=== PATIENT | female | born 1965 ===

== ENCOUNTER 2021-09-08 01:15 | Emergency (ER) | payer SELFPAY ==
[~2021-09-08] VITALS: Ht 162.6 cm; Wt 129.0 kg
[2021-09-08 01:54] LABS: HEMATOCRIT 49.1 % (37.0-47.0); HEMOGLOBIN 15.7 g/dl (12.0-16.0); IMMATURE GRANULOCYTES 0.6 % (0.0-5.0); MEAN CORPUSCULAR HGB 30.4 pG CALC (26.0-32.0); NEUT# 23.4 thou/uL (2.00-7.15); RED BLOOD COUNT 5.17 mill/uL (4.20-5.60); RED CELL DISTRI WIDTH 12.8 % (11.5-15.5)
[2021-09-08 01:54] LABS: URINE BILIRUBIN - DIPSTICK NEGATIVE (NEGATIVE); URINE BLOOD DIPSTICK MODERATE (NEGATIVE); URINE COLOR YELLOW; URINE GLUCOSE - DIPSTICK NEGATIVE (NEGATIVE); URINE KETONE TRACE mg/dL (NEGATIVE); URINE PROTEIN - DIPSTICK 30 mg/dL (NEG-TRACE); URINE SPECIFIC GRAVITY 1.025
[2021-09-08 02:02] LABS: URINE LEUK ESTERASE NEGATIVE (NEGATIVE); URINE NITRITE - DIPSTICK NEGATIVE (Negative)
[2021-09-08 02:03] LABS: URINE BACTERIA MODERATE hpf; URINE EPITHELIAL CELLS MANY EPI/hpf (0-FEW)
[2021-09-08 02:03] LABS: ALBUMIN 4.4 g/dL (3.2-5.0); ALKALINE PHOSPHATASE 98 u/l (38-126); ANION GAP 18 (6-22 (CALC)); BILIRUBIN, TOTAL 1.9 mg/dL (0.0-1.4); BUN 18 mg/dL (7-17); BUN/CREATININE RATIO 20 (12-20 (CALC)); CARBON DIOXIDE 21 mmol/l (22-30); CHLORIDE 105 mmol/l (95-108); CREATININE 0.9 mg/dL (0.5-1.0); GFR > 60 ML/MIN (>=60 (CALC)); GFR FOR AFR.AMER. > 60 ML/MIN (>=60 (CALC)); POTASSIUM 3.2 mmol/l (3.5-5.1); SGOT/AST 29 u/l (14-36); SODIUM 140 mmol/l (137-146); TOTAL PROTEIN 9.2 g/dL (6.3-8.2)
[2021-09-08 02:14] LABS: MYOGLOBIN 104 ng/mL (0 - 62)
[2021-09-08] MEDS ORDERED: HYDROCHLOROT25 MG PO (02:36)
[2021-09-08] MEDS ORDERED: NAPROXEN500 MG PO (02:38)
[2021-09-08] MEDS ORDERED: OMEPRAZOLE DR20 MG PO (02:40)
[2021-09-08] MEDS ORDERED: WAL-DRYL25 MG PO (02:42)
[2021-09-08] MEDS ORDERED: COMBIVENT RESPIMAT IN (02:43)
[2021-09-08] MEDS ORDERED: PROAIR HFA108 MCG/AC (02:44)
[2021-09-08] MEDS ORDERED: FLONASE AL50 MCG/AC1 (02:44)
[2021-09-08] MEDS ORDERED: [UNRECOGNIZED DRUG - OTHER] (02:45)
[2021-09-08 02:53] LABS: INTERNATIONAL NORMALIZED RATIO 1.1 RATIO (0.7-1.3); PROTHROMBIN TIME 11.3 SECONDS (9.0-12.5)
[2021-09-08 05:49] VITALS: BP 139/79
--- NOTE | 2021-09-11 07:55 | NUR ---
PRELIMINARY BLOOD CULTURE RESULTS SHOW GRAM POSITIVE COCCI IN 1 OF 4 VIALS. RESULTS REPORTED TO MEEK AT [facility] [address] AND FAXED TO [phone]. WILL F/U WITH FINAL RESULTS.
--- NOTE | 2021-09-12 08:39 | NUR ---
FINAL BLOOD CULTURE RESULTS CALLED TO [facility], CORRECTED RESULTS SHOW N. meningitidis. HEVER CASTELLANO REPORTS THE PATIENT HAS ALREADY HAD A POSITIVE PCR FROM THE CSF WITH THE SAME RESULTS, THE PREVIOUS RESULT OF GRAM (+) COCCI HAS BEEN CORRECTED.
== END 2021-09-08 05:49 | disposition short-term general hospital (02) | DRG 871 ==
LOC: ED 01:15
PROVIDERS: Emergency Medicine
PROC: 0T9B70Z Drainage of Bladder with Drainage Device, Via Natural or Artificial Opening (ICD-10-PCS; principal; 2021-09-08)
DX: A41.9 Sepsis, unspecified organism (principal); G93.41 Metabolic encephalopathy; N39.0 Urinary tract infection, site not specified; R65.20 Severe sepsis without septic shock; G93.0 Cerebral cysts; I10 Essential (primary) hypertension; E78.5 Hyperlipidemia, unspecified; J44.9 Chronic obstructive pulmonary disease, unspecified; Z88.0 Allergy status to penicillin; Z20.822 Contact with and (suspected) exposure to COVID-19
CPT/HCPCS: J0131; J1953; J2280; S0073